=== PATIENT | male | born 1950 | race Caucasian/White ===

== ENCOUNTER 2020-04-24 13:51 | Emergency (ER) | payer MEDICARE, MEDICAID ==
[~2020-04-24] VITALS: Ht 172.7 cm; Wt 75.0 kg
[2020-04-24] MEDS ORDERED: diabetes medication PO (13:58)
[2020-04-24] MEDS ORDERED: ATOR40TA71 PO (14:19)
[2020-04-24] MEDS ORDERED: SITA1TAB6 PO (14:19)
[2020-04-24] MEDS ORDERED: EMPA25TA PO (14:19)
[2020-04-24] MEDS ORDERED: LOSA25TA21 PO (14:19)
[2020-04-24 15:52] VITALS: BP 121/70
== END 2020-04-24 16:27 | disposition home or self-care (01) ==
LOC: EMS 13:52
DX: R05 Cough (principal); R09.81 Nasal congestion; Z20.828 Contact with and (suspected) exposure to other viral communicable diseases
CPT/HCPCS: 87426; 71045-TC